=== PATIENT | female | born 1975 | race Caucasian/White ===

== ENCOUNTER 2017-02-20 12:37 | Observation (INO) | payer BC ==
[2017-02-20] MEDS ORDERED: Ondansetron INJ* 2 MG/ML VIAL IV PRN (14:40)
[2017-02-20] MEDS ORDERED: Clindamycin 600 MG IVPREMIX(* 600 MG/50 ML SDV IV SCH (15:00)
[2017-02-20] MEDS ORDERED: Dexamethasone IV* 6 MG in NS 0.9% 50 ML* 50 ML IVPB SCH (15:00)
[2017-02-20 15:22] LABS: Hematocrit 39 % (35-47); Hemoglobin 12.9 g/dl (12.0-16.0); Mean Corpuscular HGB Conc 33 g/dl (31-36); Mean Corpuscular Hemoglobin 32 pg (27-31); Mean Corpuscular Volume 96 fL (80-97); Mean Platelet Volume 8 um3 (7.4-10.4); Red Cell Distribution Width 13 % (10.5-15); White Blood Count 6.9 10^3/ul (3.5-10.8)
[2017-02-20 15:47] LABS: BUN/Creatinine Ratio 18.5 (8-20); C Reactive Protein 44.97 mg/L (< 5.00); EGFR African American 128.6 (>60)
[2017-02-20] MEDS: Clindamycin 600 MG IVPREMIX(* 600 MG/50 ML SDV IV SCH ×2 (15:55→21:13)
[2017-02-20] MEDS: Acetaminophen TAB* 325 MG PO PRN ×2 (16:01→21:13)
[2017-02-20] MEDS: Ibuprofen ADULT LIQ* 600 MG/30 ML UDC PO PRN ×2 (16:55→21:46)
[2017-02-20] MEDS: Dexamethasone IV* 4 MG/ML 1 ML (4 MG) IVPB SCH ×2 (16:57→22:17)
--- NOTE | 2017-02-20 21:31 | HP ---
CC: Dr. Lockwood * HISTORY AND PHYSICAL: DATE OF ADMISSION: 02/20/17 PRIMARY CARE PROVIDER: Dr. Lockwood. CHIEF COMPLAINT: Raspy voice. HISTORY OF PRESENT ILLNESS: Ms. Hart is a 41-year-old female who noted last she had a very sore throat. It had been present since Thursday. She had fever and body aches. There was question of strep. Therefore, she went to [facility] last . There was a concern for peritonsillar abscess and therefore, the patient was referred to ear, nose, and throat. The patient had been started on Z-Frank; however, when seen by ENT, the antibiotic was changed to clindamycin. She was instructed that if she was not feeling better by this afternoon, she should be seen back in the ENT office. The patient states that she woke up this morning feeling worse with increased raspy voice and increased difficulty in swallowing. She states her swallowing has been sore; however, it is now becoming difficult to swallow. She went back to Dr. Chatterjee and she got scoped. At that point, she was found to have epiglottitis. The patient states that she has been taking ibuprofen round the clock. PAST MEDICAL HISTORY: None. PAST SURGICAL HISTORY: Salpingectomy. MEDICATIONS: 1. Clindamycin 300 mg p.o. 4 times daily. The patient has had 3 doses. 2. Singulair 5 mg p.o. daily. 3. Natasha 180 mg p.o. daily. ALLERGIES: PENICILLIN. FAMILY HISTORY: Mom is living, she is 68. She has some sort of cardiac arrhythmia. Dad is living, he is 70. He has a history of hypertension and valve replacement. SOCIAL HISTORY: The patient is a nonsmoker. She drinks alcohol on occasion. She works in sales and marketing. She is . She has 1 daughter. Her is her healthcare proxy. REVIEW OF SYSTEMS: A complete 11-system review of systems is obtained. Pertinent positives and negatives are as per HPI and otherwise negative. PHYSICAL EXAMINATION GENERAL: The patient is a well-developed middle-aged female, sitting up in bed , in no acute distress. VITAL SIGNS: Pending. HEENT: Pupils are equal, round, and react to light. Extraocular muscles are intact. Oropharynx is clear. It is difficult to see to the posterior pharynx. There does appear to be some erythema and edema in the posterior pharynx. The patient's submandibular region feels full, but I do not feel any discrete lymphadenopathy. PULMONARY: Lungs are clear to auscultation bilaterally. CARDIAC: Normal S1 and S2. Regular rate and rhythm. I do not appreciate any murmurs. ABDOMEN: Bowel sounds are present. Abdomen is soft, nontender, nondistended. MUSCULOSKELETAL: There is no cyanosis or clubbing of the digits. There is full active range of motion of all 4 extremities. SKIN: Warm and dry. There are no rashes. NEURO: Cranial nerves II through XII are grossly intact. Sensation is intact to light touch throughout. Strength is 5/5 and symmetric to both upper and lower extremities bilaterally. PSYCH: The patient is alert. She is oriented x3. Affect appears appropriate. LABORATORY DATA/DIAGNOSTIC STUDIES: Pending. ASSESSMENT AND PLAN: Ms. Hart is a 41-year-old female seen at the ENT office today by Dr. Chatterjee and was diagnosed with epiglottitis following 5 days' worth of symptoms. 1. Epiglottitis. At this time, Dr. Chatterjee has recommended placing the patient on IV clindamycin 600 mg IV q.6 hours. Additionally, he has recommended Decadron 6 mg IV q.6 hours. I am hopeful that the patient will have significant improvement in the next 24 hours. She will have ibuprofen as well as Tylenol available for pain. The patient will be placed on a soft diet, though this can be limited to full liquids if she has a hard time with soft foods. 2. Allergic rhinitis. The patient will continue on her Singulair, but I will hold her Natasha. 3. DVT prophylaxis. According to the Adult Thrombosis Prophylaxis Risk Factor Assessment Guide, the patient has a total risk factor score of 1, making her low risk. Ambulation will be utilized as DVT prophylaxis. 4. Code status is full. TIME SPENT: 55 minutes was spent admitting this patient. [id number]/[facility] #: [id number] MTDD
[2017-02-21] MEDS: Clindamycin 600 MG IVPREMIX(* 600 MG/50 ML SDV IV SCH ×2 (04:30→09:31)
[2017-02-21] MEDS: Ibuprofen ADULT LIQ* 600 MG/30 ML UDC PO PRN ×2 (04:35→10:33)
[2017-02-21] MEDS: Dexamethasone IV* 4 MG/ML 1 ML (4 MG) IVPB SCH ×2 (05:19→10:28)
[2017-02-21] MEDS ORDERED: Montelukast Sodium TAB* 5 MG PO SCH (09:00)
[2017-02-21 12:31] VITALS: BP 103/56
--- NOTE | 2017-02-21 15:25 | DS ---
CC: Dr. Lockwood * DISCHARGE SUMMARY: DATE OF ADMISSION: 02/20/17 DATE OF DISCHARGE: 02/21/17 PRIMARY CARE PROVIDER: Dr. Lockwood. EAR, NOSE, AND THROAT: Dr. Chatterjee. PRINCIPAL DIAGNOSIS: Epiglottitis. SECONDARY DIAGNOSIS: Allergic rhinitis. DISCHARGE MEDICATIONS: 1. Singulair 5 mg p.o. daily. 2. Fexofenadine 60 mg p.o. daily. 3. Prednisone 20 mg p.o. daily. 4. Clindamycin 300 mg p.o. q.6 hours. HOSPITAL COURSE: Ms. Hart is a 41-year-old female who was seen by ear, nose, and throat as an outpatient for complaints of a very sore throat. The patient had her antibiotic changed from a Z-Frank to clindamycin; however, with that change, the patient continued to have worsening of symptoms. Her voice became very raspy, therefore she re-presented to ear, nose, and throat office where she saw Dr. Chatterjee on the day of admission. He performed a scope and found that she had acute epiglottitis. The patient was referred to the hospital for observation, admission, IV antibiotics, and IV steroids. The patient received IV clindamycin and IV Decadron with decent response. Her voice is less raspy and she notes that she is able to swallow with less discomfort at this point. The patient is anxious to be discharged home. I have discharged her to continue on clindamycin 300 mg p.o. q.6 hours and prednisone 20 mg daily until she is seen by ear, nose, and throat and then a decision could be made on what to do with that dose. The patient has been instructed to return to the emergency room if she has any worsening in her ability to swallow, shortness of breath, or any other concerning issues. FOLLOWUP CONCERNS: The patient is being discharged home today 02/21/17. ACTIVITY LEVEL: As tolerated. DIET: Regular. CONDITION ON DISCHARGE: Stable. TIME SPENT: 25 minutes was spent discharging this patient. [id number]/[facility] #: [id number] MTDD
== END 2017-02-21 13:36 | disposition home or self-care (01) ==
LOC: MED 14:01
PROVIDERS: ADMIT Hospitalist; ATTEND Hospitalist
DX: J05.10 Acute epiglottitis without obstruction (principal); J30.9 Allergic rhinitis, unspecified
CPT/HCPCS: 36415; 80048; 85025; 86140; 96374; A9270-GY; G0378; J1100

== ENCOUNTER 2018-05-21 09:03 | Day surgery (SDC) | payer BC ==
[~2018-05-21 09:03] MED LIST: Buffered Lidocaine 0.9% SYRIN* 5 ML/SYR SYRINGE INTRADERM ONE; Dexamethasone IV* 4 MG/ML 1 ML (4 MG) IV SLOW PU ONE; Famotidine IV* 10 MG/ML 2 ML (20 mg) IV ONE
[2018-05-21] MEDS ORDERED: Famotidine IV* 10 MG/ML 2 ML (20 mg) ONE (09:35)
[2018-05-21] MEDS ORDERED: Morphine VIAL* 10 MG/ML 1 ML VIAL ONE (09:35)
[2018-05-21] MEDS ORDERED: Dexamethasone IV* 4 MG/ML 1 ML (4 MG) ONE (09:35)
[2018-05-21] MEDS ORDERED: Clindamycin 900 MG/D5W BAG(*) 900 MG/50 ML BAG IVPB ONE (09:36)
[2018-05-21] MEDS ORDERED: Bupivacaine 0.5% W/EPI SDV* 30 ML VIAL ONE (11:00)
[2018-05-21] MEDS ORDERED: EPINEPHRINE 1 MG/ML 1 ML VIAL ONE (11:00)
[2018-05-21] MEDS ORDERED: Propofol* 10 MG/ML 20 ML BTL IV PUSH ONE (11:57)
[2018-05-21] MEDS ORDERED: Rocuronium* 10 MG/ML VIAL ONE (11:57)
[2018-05-21] MEDS ORDERED: Lidocaine 2% PF * 5 ML VIAL ONE (11:57)
[2018-05-21] MEDS ORDERED: fentaNYL* 50 MCG/ML 2 ML VIAL (100 MCG VIAL) ONE (12:31)
[2018-05-21] MEDS ORDERED: Midazolam* 1 MG/ML 2 ML VIAL (2 MG) ONE (12:31)
[2018-05-21] MEDS ORDERED: ROPIVACAINE 5 MG/ML 30 ML BTL (0.5%) ONE (12:42)
[2018-05-21] MEDS ORDERED: Ondansetron INJ* 2 MG/ML VIAL ONE (14:14)
[2018-05-21] MEDS ORDERED: Glycopyrrolate IV* 0.2 MG/ML 1 ML VIAL ONE (14:21)
[2018-05-21] MEDS ORDERED: Neostigmine Methylsulfate* 2 MG/2 ML SYRINGE ONE (14:21)
[2018-05-21 16:30] VITALS: BP 109/74
--- NOTE | 2018-05-24 01:44 | OP ---
DATE OF OPERATION: 05/21/18 - [facility] DATE OF : 73 SURGEON: Chuckie Fish MD INSTRUCTIONAL TECHNOLOGY COACH: ANA LAURA Valentine. A PA was required for the length of the procedure for assistance with positioning, retraction, and closure. ANESTHESIOLOGIST: Dr. Nawaf Chao. ANESTHESIA: General anesthesia, regional interscalene block anesthesia, local anesthesia, 10 cc Marcaine. PRE-OP DIAGNOSES: 1. Left shoulder acromioclavicular joint osteoarthritis. 2. Left shoulder rotator cuff supraspinatus tendinosis. 3. Left shoulder subacromial impingement and bursitis. 4. Left shoulder possible proximal biceps tendinosis. POST-OP DIAGNOSES: 1. Left shoulder acromioclavicular joint osteoarthritis. 2. Left shoulder rotator cuff supraspinatus tendinosis with very low-grade partial- thickness under-sided tear, fraying anterior supraspinatus. 3. Left shoulder subacromial bursitis and impingement. 4. Left shoulder long head of the biceps tendinosis. OPERATIVE PROCEDURE: 1. Left shoulder arthroscopic distal clavicle resection. 2. Left shoulder arthroscopic subacromial decompression. 3. Left shoulder arthroscopic debridement including undersurface rotator cuff tendon, supraspinatus. 4. Left shoulder open proximal biceps tenodesis, subpectoral. INDICATIONS: The patient is a 42-year-old woman, with left shoulder pain since summer 2016. The patient responded insufficiently to cortisone injections, AC joint and subacromial, by a colleague. As well, she had failed ibuprofen, home exercises of strengthening. The patient is an active athlete and the pain was significantly inhibiting her activities of daily living and sleep. The patient opted for surgery. Discussed risks and potential complications and recovery timeline. The patient preferred biceps tenodesis to biceps release. IV FLUIDS: 1100 cc crystalloid. ANTIBIOTICS: Clindamycin 900 mg IV. [id number] TIME: 63 minutes. ARTHROSCOPY FLUID UTILIZED: Five bags each with 3 L for a total of 15 L. SPECIMEN: None. IMPLANTS: Arthrex proximal biceps tenodesis button x1. COMPLICATIONS: None. ESTIMATED BLOOD LOSS: Minimal. DESCRIPTION OF PROCEDURE: In preoperative holding, the patient signed a written consent. The operative extremity was marked in preoperative holding. Anesthesia performed a regional interscalene block in preoperative holding. The patient was taken back to the operating room, placed supine on the operating room table. Sedated and intubated. The patient was placed in the lateral decubitus position left shoulder up. Longitudinal traction with 10 pounds in the appropriate amount of forward flexion and abduction. Beanbag hardened, bony prominences padded, axillary roll placed. Left shoulder was prepped and draped. Surgical time-out was performed. Spinal needle entered shoulder from posterior and I infused 30 cc of normal saline. I established a posterior glenohumeral joint portal. I started a diagnostic arthroscopy. No articular cartilage lesions. There was some fraying immediately visible about the undersurface of the anterior most supraspinatus. I established an anterior glenohumeral joint portal under direct visualization. I entered an arthroscopic shaver to remove the frayed torn tissue to get a better look at any defect of the supraspinatus. This was not a significant defect. There had been a tear of the undersurface 1 mm of the supraspinatus. However, there was some fraying also of the long head of the biceps tendon. I ranged the shoulder passively and it was clear that the long head of the biceps was abrading against the undersurface of the anterior aspect of the supraspinatus. For these reasons, I decided to cut and then tenodese the biceps tendon. I entered an arthroscopic biter and released the biceps at its origin. No articular cartilage lesions. No other rotator cuff defect. Given the small size of the tear, I did not even see the need to laine the supraspinatus with a spinal needle. I next moved to the subacromial space. The patient had subacromial bursitis. I debrided that with an arthroscopic shaver that I entered through a lateral subacromial portal established under direct visualization. I removed the bursa. The patient had no bursal-sided rotator cuff tendon tear or degeneration. With an arthroscopic bur, I debrided the anterior curve of the acromion, subacromial decompression. I next moved to the AC joint. The patient had spurs, osteophytes on either side of that joint. I removed them with the arthroscopic bur. I removed at least 8 mm of the distal end of the clavicle with the bur. I also debrided with the bur the acromial side of the joint given that the patient had bony marrow changes on either side of the AC joint as is often seen when the AC joint arthritis is significant. I really opened up that joint space nicely. I next returned briefly to the inferior aspect of the acromion to smoothen out. I removed fluids and instruments from the subacromial space. Closed the skin incisions with [id number] and 12 stitches using nylon 3-0 suture. Converted the patient to supine. I made 4-cm incision, longitudinal over the anteromedial upper arm. Dissected down to the bicipital groove. Removed the long head of the biceps tendon. Placed retractors. Placed 4 stitches with a Fiber-Loop. Drilled the anterior cortex of the bicipital groove with a Beath pin. I placed my button. Flipped the button. Tied a knot. Using a free needle, placed another tenodesis knot. Removed excess suture and tendon. Irrigation. Closure of the subcutaneous tissue with buried simple stitches using Vicryl 3-0 suture. Closure of the subcuticular layer with a running stitch using Monocryl 4-0 suture. 10 cc local anesthesia. Mastisol, Steri- Strips, Tegaderm. The incision sites received Xeroform, 4x4s, ABDs, foam tape. Sling without abduction pillow. Cooling unit. Awakened and extubated and brought to the PACU. DISPOSITION: The patient was sent home with prescriptions for Percocet, Bactrim , and aspirin. She will follow up in 10 to 14 days postoperatively. She will start physical therapy immediately. Wound care instructions provided. [id number]/[facility] #: [id number] RABIA
== END 2018-05-21 16:34 | disposition home or self-care (01) ==
LOC: OR 09:03
PROVIDERS: ATTEND Orthopaedic Surgery
DX: M19.012 Primary osteoarthritis, left shoulder (principal); M75.112 Incomplete rotator cuff tear or rupture of left shoulder, not specified as traumatic; M75.42 Impingement syndrome of left shoulder; M75.22 Bicipital tendinitis, left shoulder; M75.52 Bursitis of left shoulder; G89.18 Other acute postprocedural pain
CPT/HCPCS: 81025; C1776; J1100; J2250; J2270; J2405; J2704; J2795; J3010